=== PATIENT | female | born 1935 | race Caucasian/White ===

== ENCOUNTER 2018-12-24 06:17 | Inpatient (IN) ==
[2018-12-16 16:50] LABS: Appearance,Urine CLEAR; Bilirubin,Urine NEG (NEG); Color,Urine AMBER; Culture Indicated,Urine NO; Glucose,Urine (UA) NEGATIVE (NEG); Ketones,Urine NEG (NEG); Leukocyte Esterase,Urine NEG /uL (NEG); Nitrate,Urine NEG (NEG); Protein,Urine NEG (NEG); Specific Gravity,Urine 1.015 (1.000-1.035); Urine Blood NEG mg/dL (<0.03); Urobilinogen,Urine NEG (NEG)
[2018-12-16 18:07] LABS: Basophils # (Auto) 0.1 K/mcL (0.0-0.3); Basophils % (Auto) 0.6 % (0.0-2.0); Eosinophils # (Auto) 0.3 K/mcL (0.0-0.7); Eosinophils % (Auto) 2.9 % (0.0-7.0); Granulocytes % (Auto) 55.3 % (38.0-78.0); Hematocrit 39.1 % (36.0-48.0); Hemoglobin 12.1 g/dL (12.0-15.0); Lymphocytes # (Auto) 3.9 K/mcL (1.5-4.8); Lymphocytes % (Auto) 34.3 % (15.5-49.0); Mean Cell Volume 80.7 fL (80.0-100.0); Mean Corpuscular HGB Conc 30.9 g/dL (31.0-36.0); Mean Platelet Volume 11.2 fL (7.4-10.4); Monocytes # (Auto) 0.8 K/mcL (0.1-0.9); Monocytes % (Auto) 6.9 % (1.0-12.0); Platelet Count 309 K/mcL (140-440); RBC 4.85 M/mcL (4.00-5.20); Red Cell Distribution Width 16.2 % (11.5-14.5); WBC 11.2 K/mcL (4.5-11.0)
[2018-12-16 18:23] LABS: Blood Urea Nitrogen 20 mg/dl (8-23); Calcium 9.3 mg/dl (8.6-10.4); Carbon Dioxide 23 mmol/L (22-30); Chloride 103 mmol/L (96-108); Glomerular Filtration Rate 69; Glucose 89 mg/dL (70-105)
[2018-12-16 18:37] LABS: Prothrombin Time 12.8 sec (11.9-14.5)
[~2018-12-24 06:17] MED LIST: CELECOXIB 200 MG CAPSULE PO SCH; PREGABALIN 75 MG CAPSULE PO SCH; VANCOMYCIN 1,500 MG in 0.9 % SODIUM CHLORIDE 500 ML IV SCH; oxyCODONE 10 MG TAB.ER.12H PO SCH
[2018-12-24] MEDS ORDERED: SCOPOLAMINE 1 PATCH PATCH TOPICAL PRN (06:30)
[2018-12-24] MEDS ORDERED: IPRATROPIUM/ALBUTEROL 3 ML AMPUL.NEB NEB PRN ×2 (06:30→09:59)
[2018-12-24] MEDS ORDERED: GENTAMICIN SULFATE 800 MG/20 ML VIAL IR ONE (08:45)
[2018-12-24] MEDS ORDERED: ONDANSETRON 4 MG/2 ML VIAL ONE (09:02)
[2018-12-24] MEDS ORDERED: PROPOFOL 200 MG/20 ML VIAL IV ONE (09:02)
[2018-12-24] MEDS ORDERED: LIDOCAINE HCL/PF 100 MG/5 ML SYRINGE IV ONE (09:02)
[2018-12-24] MEDS ORDERED: ePHEDrine 50 MG/ML AMPUL IV ONE (09:02)
[2018-12-24] MEDS ORDERED: DEXAMETHASONE 10 MG/ML VIAL ONE (09:02)
[2018-12-24] MEDS ORDERED: PHENYLEPHRINE 10 MG/ML VIAL ONE (09:02)
[2018-12-24] MEDS ORDERED: ROCURONIUM 10 MG/ML ML IV ONE (09:02)
[2018-12-24] MEDS ORDERED: MIDAZOLAM 5 MG/5 ML VIAL ONE (09:02)
[2018-12-24] MEDS ORDERED: ONDANSETRON 4 MG/2 ML VIAL IV PRN ×2 (09:59→10:33)
[2018-12-24] MEDS ORDERED: ACETAMINOPHEN 1,000 MG/100 ML BOTTLE IV ONE (09:59)
[2018-12-24] MEDS ORDERED: METOPROLOL TARTRATE 5 MG/5 ML VIAL IV PRN (09:59)
[2018-12-24] MEDS ORDERED: FLUMAZENIL 0.1 MG/ML ML IV PRN (09:59)
[2018-12-24] MEDS ORDERED: METHOCARBAMOL 1,000 MG/10 ML VIAL IV PRN (09:59)
[2018-12-24] MEDS ORDERED: MEPERIDINE 25 MG/ML SYRINGE IV PRN (09:59)
[2018-12-24] MEDS ORDERED: NALOXONE HCL 0.4 MG/ML VIAL IV PRN (09:59)
[2018-12-24] MEDS ORDERED: diphenhydrAMINE 50 MG/ML VIAL IV PRN (09:59)
[2018-12-24] MEDS ORDERED: ATROPINE SULFATE 0.4 MG/ML VIAL IV PRN (09:59)
[2018-12-24] MEDS ORDERED: fentaNYL 100 MCG/2 ML VIAL IV PRN (09:59)
[2018-12-24] MEDS ORDERED: ePHEDrine 50 MG/ML AMPUL IV PRN (09:59)
[2018-12-24] MEDS ORDERED: PROMETHAZINE 25 MG/ML VIAL IV PRN (09:59)
[2018-12-24] MEDS ORDERED: HYDROmorphone 2 MG/ML VIAL IV PRN (09:59)
[2018-12-24] MEDS ORDERED: LACTATED RINGERS 1,000 ML IV SCH (10:00)
--- NOTE | 2018-12-24 10:32 | Brief Operative Note ---
Date of procedure: 12/24/18 Pre-op diagnosis: right hip osteoarthritis Post-op diagnosis: same Procedure: right total hip arthroplasty Grafts/Implants: Yes Anesthesia: spinal Complications: none Surgeon: Sebastián Sanford Creative Manager: Melia Pike Estimated blood loss (cc): 150 Specimens Removed/Pathology: none sent Condition: stable Disposition: PACU
[2018-12-24] MEDS ORDERED: KETOROLAC 15 MG/ML VIAL IV PRN (10:33)
[2018-12-24] MEDS ORDERED: FLEETS ADULT ENEMA PR PRN (10:33)
[2018-12-24] MEDS ORDERED: ONDANSETRON 4 MG ODT TABLET SL PRN (10:33)
[2018-12-24] MEDS ORDERED: TRANEXAMIC ACID 1,000 MG/10 ML VIAL IV SCH (10:33)
[2018-12-24] MEDS ORDERED: BISACODYL 10 MG SUPP.RECT PR PRN (10:33)
[2018-12-24] MEDS ORDERED: POLYETHYLENE GLYCOL 3350 17 GM PACKET PO PRN (10:33)
[2018-12-24] MEDS ORDERED: BENZOCAINE/MENTHOL 1 LOZENGE PO PRN (10:33)
[2018-12-24] MEDS ORDERED: MAGNESIUM HYDROXIDE 30 ML ORAL.SUSP PO PRN (10:33)
--- NOTE | 2018-12-24 11:07 | Operative Note ---
DATE OF OPERATION: 12/24/2018 PREOPERATIVE DIAGNOSIS: Degenerative joint disease, right hip. POSTOPERATIVE DIAGNOSIS: Degenerative joint disease, right hip. PROCEDURE: Right total hip arthroplasty. SURGEON: Rubén Sanford M.D. WHEEL INSTALLER SURGEON: Melia Pike PA-C. This provider's expertise and technical skill were required throughout the case. The PA assisted with preoperative coordination, intraoperative retraction, wound closure, dressing and splint application, as well as postoperative documentation and care coordination. ANESTHESIA: Spinal with LMA assist. ESTIMATED BLOOD LOSS: 150 mL COMPLICATIONS: None noted. SPECIMENS REMOVED: None. DRAINS: None. IMPLANTS: DePuy Motley Gription acetabular shell 52 mm, DePuy [place] hole eliminator PS, DePuy pinnacle AltrX polyethylene acetabular liner neutral 36 x 52, DePuy femoral Actis DuoFix hip prosthesis cementless size 5 standard curtis, DePuy Biolox Delta ceramic femoral head +5 36 mm diameter. INDICATIONS: The patient has had a long-standing history of worsening pain in the hip that has failed conservative treatment. Radiographs have confirmed advanced degenerative joint disease. After a long discussion about treatment options, the patient elected to proceed with a hip arthroplasty. The risks and benefits were discussed with the patient in detail including, but not limited to, the risks of anesthesia, problems with the heart or lungs related to anesthesia, infection, compromise or injury to the nerves and blood vessels, deep venous thrombosis, pulmonary embolism, pneumonia, continued pain after surgery, worsening pain or symptoms after surgery, swelling, loss of motion, instability, leg length discrepancy, and need for repeat surgery. DESCRIPTION OF PROCEDURE: The patient was seen in pre-anesthesia waiting room where all questions were answered and the correct side and site were identified and marked. The patient was then brought to the operating room and administered the anesthetic and given preoperative antibiotics. A time-out was then called. The patient was placed in the lateral decubitus position with all prominences well- padded using the [place] frame and the extremity was prepped and draped in the usual sterile fashion. Anesthesia; gave the patient 1 gm of tranexamic acid via an intravenous route. A standard posterior approach was made. We dissected through the skin and subcutaneous tissue to the deep fascia. The deep fascia was split in line with the incision and a Charnley retractor was placed. We exposed, tagged, and incised the short external rotators and piriformis tendon and retracted them posteriorly to help protect the sciatic nerve which was palpated throughout the case. We then performed a T-capsulotomy and tagged the capsule edges. Prior to dislocating the hip, we set a length and offset gauge from a Steinmann pin in the iliac wing to a freddy on the greater trochanter. The hip was then dislocated and a femoral neck osteotomy was performed to the presurgical templated level off the lesser trochanter. The head was removed and sized. We next turned our attention to the acetabulum. Retractors were placed for optimal visualization. A complete labral excision was performed. The capsule was preserved for later closure. We began reaming using anatomic landmarks with the DePuy Motley acetabular system. We medialized the cup and reamed up to provide good fill and approximately 20 degrees of anteversion and 45 degrees of abduction, we impacted the DePuy Motley cup and placed a cancellous screw in the posterior-superior quadrant. Osteophytes were removed from around the shell. We placed the trial liner and turned our attention to the femur. We placed retractors for visualization, internally rotated the femur, and established intramedullary access. The femoral axis was lateralized with the box osteotome and then reamed up in a standard fashion. We broached using the DePuy Actis stem to a stable platform medial, lateral, and rotationally with the appropriate version. We then performed a calcar reaming off the broach. Trials were then placed and optimized for leg length and stability. We used the leg length and offset guide to confirm our trials. Best stability, length, and offset characteristics were obtained with these sizes. We removed all trials and impacted the polyethylene acetabular liner in a standard fashion after a thorough irrigation. We then impacted the femoral stem to its broached location using a fourth-generation cementing technique and placed the head. Final reduction was performed. Again, good stability, leg length, and offset characteristics were noted. We irrigated with three liters of antibiotic saline. We closed the capsule with #2 FiberWire. We closed the fascia with a combination of #2 Stratafix and #0 Vicryl. We closed the subcutaneous tissue and skin in layers out to Dermabond on the skin. A sterile pressure dressing and abduction wedge were applied. All needle and sponge counts were correct. The patient was transferred to the recovery room in stable condition. RHONA:margoth Job ID: [id number] Doc ID: [id number] Rubén Sanford MD
[2018-12-24] MEDS: 0.9 % SODIUM CHLORIDE 1,000 ML IV SCH ×2 (12:00→20:54)
--- NOTE | 2018-12-24 12:13 | XRay Report ---
CLINICAL INFORMATION: Post-op Total Hip COMPARISON: None. FINDINGS: Right total hip prostheses is anatomically aligned. No osseous abnormality. Moderate left hip and mild bilateral SI degenerative changes noted. Soft tissue swelling over the surgical site. IMPRESSION: Right total hip prostheses in anatomic alignment Interpreted and Authenticated by: Sebastián Hernadez 12/24/18
[2018-12-24] MEDS ORDERED: GLYCOPYRROLATE 0.2 MG/ML VIAL IV ONE (12:59)
[2018-12-24] MEDS: 0.9 % SODIUM CHLORIDE 10 ML SYRINGE IV SCH ×2 (14:36→20:54)
[2018-12-24] MEDS: DOCUSATE SODIUM 100 MG CAPSULE PO SCH (20:51)
[2018-12-24] MEDS: ASPIRIN 81 MG TAB.CHEW PO SCH (20:51)
[2018-12-24] MEDS: METHOCARBAMOL 750 MG TABLET PO PRN (20:57)
[2018-12-24] MEDS ORDERED: SENNOSIDES 1 TABLET PO SCH (21:00)
[2018-12-24] MEDS: HYDROcodone/APAP 10/325MG TABLET PO PRN (23:57)
[2018-12-25] MEDS: METHOCARBAMOL 750 MG TABLET PO PRN (03:09)
[2018-12-25] MEDS: 0.9 % SODIUM CHLORIDE 1,000 ML IV SCH ×2 (03:10→11:01)
[2018-12-25] MEDS: 0.9 % SODIUM CHLORIDE 10 ML SYRINGE IV SCH (05:06)
[2018-12-25] MEDS: HYDROcodone/APAP 10/325MG TABLET PO PRN ×2 (05:19→11:21)
[2018-12-25] MEDS ORDERED: VANCOMYCIN 1,000 MG in 0.9 % SODIUM CHLORIDE 250 ML IV ONE (06:00)
[2018-12-25 06:38] LABS: Hematocrit 30.9 % (36.0-48.0)
[2018-12-25] MEDS ORDERED: LEVOTHYROXINE 50 MCG TABLET PO SCH (07:30)
--- NOTE | 2018-12-25 07:39 | Orthopedic Progress Note ---
Subjective Patient information: Note initiated : 12/25/18 at 7:38 am Service Date, if different from initiated Date: [] Patient: Monica Leslie 83 y/o F admitted on 12/24/18 for Right Total Hip Arthroplasty. Chief Complaint: [] Interval history: doing well no complaints Objective Vital signs: Vital Signs Temp Pulse Resp BP Pulse Ox 12/25/18 03:02 97.7 F 56 L 18 111/52 96 12/24/18 23:00 97.4 F 51 L 20 113/64 92 12/24/18 19:38 97.5 F 64 20 110/60 95 12/24/18 16:51 97.0 F 70 14 149/75 94 12/24/18 14:01 96.4 F L 41 L 14 160/75 96 12/24/18 14:00 41 L 16 160/75 96 12/24/18 13:20 54 L 102/55 99 12/24/18 12:50 49 L 143/76 100 12/24/18 12:40 56 L 148/69 99 12/24/18 12:20 59 L 120/65 90 12/24/18 12:05 60 114/58 91 12/24/18 12:00 97 12/24/18 11:50 97.9 F 64 16 136/71 93 12/24/18 11:40 96.7 F L 67 19 130/52 12/24/18 11:25 96.6 F L 59 L 14 113/51 94 12/24/18 11:10 57 L 19 116/55 92 12/24/18 11:05 97.4 F 59 L 20 108/50 95 12/24/18 11:00 62 19 124/55 94 12/24/18 10:55 97.5 F 51 L 20 114/51 95 Intake and Output 12/24/18 12/25/18 12/25/18 21:59 05:59 13:59 Intake Total 1000 1683 Output Total 450 900 Balance 550 783 Intake: IV 1000 783 Sodium Chloride 0.9% 1,000 ml @ 1000 783 125 mls/hr IV .Q8H [facility] Rx#: [id number] Oral 900 Output: Void Amount 450 900 Other: Urine Appearance Clear Clear Urine Color Bright Yellow Bright Yellow Urine Odor Normal Normal Weight 234 lb Intake & Output: Intake & Output 12/24/18 12/25/18 12/25/18 21:59 05:59 13:59 Intake Total 1000 1683 Output Total 450 900 Balance 550 783 Weight 234 lb Intake: IV 1000 783 Sodium Chloride 0.9% 1,000 ml @ 1000 783 125 mls/hr IV .Q8H [facility] Rx#: [id number] Oral 900 Output: Void Amount 450 900 Other: Urine Appearance Clear Clear Urine Color Bright Yellow Bright Yellow Urine Odor Normal Normal Incision: Yes healing Incision clean and dry: Yes Dressing: Yes clean, Yes dry, Yes intact Weight bearing status: full Neurological exam IM: Yes abnormal gait, Yes alert, Yes oriented X3, Yes motor sensory intact, Yes neurovascular intact Extremities exam IM: No calf tenderness, Yes Foot pink and warm, Yes neurovascular intact - Labs CBC & BMP: 12/25/18 04:35 12/16/18 13:35 Labs: Orthopedic Labs 12/16/18 13:35 PT 12.8 INR 1.0 12/25/18 12/16/18 04:35 13:35 Hgb 10.0 L 12.1 Hct 30.9 L 39.1 Assessment and Plan (1) Hip osteoarthritis pod 1 s/p henry wbat pain control dvt prophylaxis pt plan home today Status: Acute
--- NOTE | 2018-12-25 07:39 | Discharge Summary ---
Ortho Discharge - [facility] - Patient Instructions Diet: Regular Diet Activity: ambulate with assistive device, weight bearing as tolerated Total Hip Protocol: Follow activity instructions as provided by Physical Therapy. Dressing Care: May shower in 2 days - Problem Maintenance (1) Hip osteoarthritis Status: Acute - Follow Up Plan Follow Up Appointments: Jose Bill PA-C [Physician Sales Engineer Account Manager] - 01/08/19 9:00 am Disposition: Home, Self-Care Prognosis: Good Rehab Potential: Good I certify that the patient requires SNF services: No Overall status at discharge: patient is progressing back to baseline
[2018-12-25] MEDS ORDERED: VANCOMYCIN 1,500 MG in 0.9 % SODIUM CHLORIDE 500 ML IV ONE (08:00)
[2018-12-25] MEDS: DOCUSATE SODIUM 100 MG CAPSULE PO SCH (08:25)
[2018-12-25] MEDS: ASPIRIN 81 MG TAB.CHEW PO SCH (08:25)
== END 2018-12-25 13:50 | disposition home or self-care (01) | DRG 470 ==
LOC: ICU 06:17 → MEDSUR 13:56
PROVIDERS: ADMIT Orthopaedic Surgery Sports Medicine; ATTEND Orthopaedic Surgery Sports Medicine